=== PATIENT | male | born 1980 | race African-American/Black ===

== ENCOUNTER 2022-01-15 08:25 | Emergency (ER) | payer BC ==
[2022-01-15] MEDS ORDERED: Lidocaine Viscous Sol 2% 15 ml UD Cup ONE (09:39)
[2022-01-15] MEDS ORDERED: Mag-Al Plus 1200 MG/1200 MG/120 MG/30 ML UDCUP ONE (09:39)
== END 2022-01-15 10:54 | disposition home or self-care (01) ==
LOC: CSHERS 08:25
DX: R13.10 Dysphagia, unspecified (principal)
CPT/HCPCS: 71045